=== PATIENT | female | born 2000 | race Caucasian/White ===

== ENCOUNTER 2021-08-08 12:54 | Outpatient (CLI) | payer SELFPAY, OTHER ==
--- NOTE | 2021-08-08 13:01 | CT_ITS ---
STUDY: CT MAXILLOFACIAL SINUSES REASON FOR EXAM: Female, 21 years old. SINUSITIS RADIATION DOSAGE (If Supplied By Facility): CTDIvol = ( 33.06 ) mGy, DLP = ( 804.92 ) mGycm TECHNIQUE: The patient was scanned in a multi detector CT scanner. High resolution axial imaging was performed without the administration of intravenous contrast material. Sagittal and coronal images were reconstructed. Individualized dose optimization techniques were used for this CT. COMPARISON: None. FINDINGS: Left maxillary sinus is opacified. The majority of the left ethmoid sinus is also opacified with occlusion of the ostiomeatal complex. There is also significant mucosal thickening in the right ethmoid and sphenoid sinuses.. There is a minimal amount of mucosal thickening in the sphenoid sinuses, the left frontal sinus is opacified. No expansile bony lesion or evidence of fracture. CT/Sinus/Facial Bone IMPRESSION: Extensive paranasal sinusitis particularly in the left ethmoid and maxillary sinuses. Findings suggest polyposis though diffuse mucous retention cysts could have a similar appearance. If the patient is immunocompromised this could be an unusual or opportunistic inflammatory process. Electronically Signed: Martin Maloney MD at 13:28 EST ,
== END 2021-08-08 23:59 | disposition home or self-care (01) ==
LOC: CT 13:01
PROVIDERS: PCP Family Medicine; Referring Provider Otolaryngology; Visit Provider Otolaryngology
DX: J32.8 Other chronic sinusitis (principal)
CPT/HCPCS: 70486

== ENCOUNTER → 2021-10-22 | Outpatient (CLI) | payer OTHER, SELFPAY | END | disposition home or self-care (01) | LOC: LABSPEC 15:13 | PROVIDERS: PCP Family Medicine; Visit Provider Otolaryngology | DX: Z20.822 Contact with and (suspected) exposure to COVID-19 (principal) | CPT/HCPCS: 87635; U0003; U0005 ==